=== PATIENT | female | born 1965 | race Caucasian/White ===

== ENCOUNTER → 2017-11-08 | Day surgery (SDC) | payer OTHER ==
[~2017-11-08] VITALS: Ht 175.3 cm; Wt 96.5 kg
[~2017-11-08] MED LIST: APREPITANT 40 MG CAP ONE; CHLORHEXIDINE GLUCONATE 2 % 1 PACK (2 CLOTHS) TOPICAL PRN; CITA10TA4 PO; CLINDAMYCIN 600 MG/NS PREMIX 50 ML IV ONE; DEXAMETHASONE SOD PHOS 4 MG/ML VIAL IV ONE; LACTATED RINGER'S 1000 ML IV PRN; LIDOCAINE 1%/EPINEPHrine 1:100,000 SOLN 30 ML VIAL ONE; LIDOCAINE HCL 1% PF 5 ML SYRINGE OTHER ONE; METOPROLOL TARTRATE 25 MG TAB PO PRN; MIDAZOLAM HCL 2 MG/2 ML VIAL ONE; ONDANSETRON HCL 4 MG/2 ML VIAL IV PUSH ONE; OXYMETAZOLINE HCL 0.05% 15 ML NASAL SPRAY ONE; PHENYLEPH/NS 1000 MCG/10 ML SYR IV ONE; POVIDONE IODINE 5% (ANTISEPSIS KIT) 4 APPLICATIONS EACH NARE PRN; PROPOFOL 200 MG/20 ML AMP IV ONE; ROCURONIUM INJ 50 MG/5 ML VIAL IV ONE; SODIUM CHLORID 0.9% 500 ML IV PRN; SUGAMMADEX SODIUM 200 MG/2 ML VIAL IV PUSH ONE; traMADol HCL 50 MG TAB ONE
[2017-11-08 08:45] VITALS: PULSE 63
[2017-11-08 10:00] VITALS: TEMP 97.8
[2017-11-08 11:23] VITALS: BP 133/78; PULSE 61; RESP 16; O2SAT 98
--- NOTE | 2017-11-08 18:27 | EKG ---
Date Performed: 11/08/2017 Time Performed: 06:45:18 PTAGE: 51 years EKG: SINUS BRADYCARDIA LOW QRS VOLTAGE IN PRECORDIAL LEADS BORDERLINE ECG NO PREVIOUS TRACING DOCTOR: Galen Mensah Interpretating Date/Time 11/08/2017 18:25:27
--- NOTE | 2017-11-18 09:44 | MP ---
cc: RONALD AUGUSTIN MD DATE OF SURGERY 11/08/[address] Ronald Augustin PREOPERATIVE DIAGNOSIS 1. Nasal airway obstruction. 2. Nasal septal deviation. 3. Hypertrophy inferior turbinates. 4. Cutaneous lesion of right nasal vestibule. POSTOPERATIVE DIAGNOSIS 1. Nasal airway obstruction. 2. Nasal septal deviation. 3. Hypertrophy inferior turbinates. 4. Cutaneous lesion of right nasal vestibule. OPERATION PERFORMED 1. Excision of right endonasal lesion, CPT code 51929. 2. Open repair nasal septal fracture. 3. Bilateral submucosal resection of inferior turbinates. INDICATIONS The indications are documented in the history and physical. DESCRIPTION OF OPERATION The patient was taken to OR #2 and placed in the supine position. Following induction of general anesthesia and intubation the nose was packed bilaterally with cotton pledgets saturated in 0.05% oxymetazoline. The nasal vestibule and septal mucosa as well as inferior turbinates were injected with a total of 10 mL of 1% Xylocaine with epinephrine 1:100,000. This included in the right nasal vestibule where there was a keratotic lesion involving the anterior septal skin. She was then prepped and draped for surgery. The packing was removed and a hemitransfixion incision was made in the left nasal vestibule and through this incision the mucosa of septum was elevated bilaterally as far as the junction of the bony cartilaginous septum. This exposed the quadrangular cartilage which showed evidence of old septal fracture with comminuted fragments extending into the nasal airway bilaterally. A cumulative area of 2 x 2.5 cm was removed preserving 1.5 cm dorsal and caudal cartilaginous struts. The mucosa was then elevated from the bony septum and the maxillary crest. The bony septum was removed using Colton-Marks forceps and Everetts septal forceps. The maxillary crest was removed using a 6 mm Humaira chisel and preserving the anterior nasal spine. The incisions were then closed a running suture of 4-0 chromic and the mucosal layers of septum were approximated to each other with a quilting stitch of 4-0 plain gut. The inferior turbinates were addressed next. They were fractured out medially and stab incisions were opened along their inferior surfaces. Through these incisions the submucosal soft tissue was reduced using a curet and preserving the conchal bone. The incisions were then cauterized using suction Bovie at 45 miramontes. The remnants of the inferior turbinates were then re-lateralized to the lateral nasal wall. The lesion of the anterior nasal vestibule was then addressed. This was excised down to subcutaneous soft tissue using a 15 blade scalpel resulting in a 3 x 5 mm cutaneous defect. The margins of the defect were cauterized using needle-tip Bovie at 12 miramontes. The nose was then packed bilaterally with 5.5 cm Rapid Rhino packs each inflated with 5 mL of air. The procedure was terminated. The patient was reversed from anesthesia and taken to Recovery in good condition. There were no complications. Blood loss was 100 mL. MD LEROY Velasquez/JHOAN /6:51 AM /9:29 AM
== END | disposition home or self-care (01) ==
LOC: PHSDC 06:11
PROVIDERS: ATTEND Otolaryngology
DX: J98.8 Other specified respiratory disorders (principal); J34.2 Deviated nasal septum; J34.3 Hypertrophy of nasal turbinates; D16.4 Benign neoplasm of bones of skull and face; Z01.810 Encounter for preprocedural cardiovascular examination
CPT/HCPCS: 00160; 30117; 30140; 30520; 88305; 93005; J1100; J2250; J2370; J2405; J3010; J7120; J8501; 88304; 88311